=== PATIENT | female | born 1960 | race Caucasian/White ===

== ENCOUNTER → 2017-07-07 | Outpatient (CLI) | payer OTHER ==
[~2017-07-07] MED LIST: GLCSUNK PO; LORA-741 PO; PSEU30TA20 PO; ULT/50 PO; melatonin PO
--- NOTE | 2017-07-07 18:09 | DIAGNOSTIC IMAGING REPORT ---
HEAD CT NONCONTRAST CT DOSE: 537.48 mGy.cm HISTORY: HEADACHE,DIPLOPIA,OTHER VISUAL DISTURBANCES, TECHNIQUE: Multiaxial CT images of the head were performed without the use of intravenous contrast. Automated exposure control was utilized for this study. A dose lowering technique was utilized adhering to the principles of ALARA. Comparison: None. Findings: The paranasal sinuses and mastoid air cells are clear. The calvarium and skull base are intact. The ventricles and sulci are within normal limits. There is no mass, hematoma, midline shift, or acute infarct. There is cerebellar tonsillar ectopia possibly representing a Chiari 1 malformation. Impression: 1. No acute intracranial abnormality. 2. There is cerebellar tonsillar ectopia possibly representing a Chiari 1 malformation. This can be confirmed with follow-up nonemergent brain MRI. Electronically signed by: Naldo Gonzalez M.D. 07/07/2017 6:07 PM Dictated Date/Time: 07/07/2017 6:00 PM
== END | disposition home or self-care (01) ==
LOC: C.CTS 17:40
PROVIDERS: ATTEND Nurse Practitioner Family
DX: H53.8 Other visual disturbances (principal); H53.2 Diplopia; H53.459 Other localized visual field defect, unspecified eye; R51 Headache; G93.89 Other specified disorders of brain

== ENCOUNTER → 2017-07-14 | Outpatient (CLI) | payer OTHER ==
--- NOTE | 2017-07-15 07:56 | DIAGNOSTIC IMAGING REPORT ---
MRI OF THE BRAIN WITHOUT IV CONTRAST CLINICAL HISTORY: Diplopia. COMPARISON STUDY: CT of the brain dated 07/07/2017. TECHNIQUE: MRI of the brain was performed utilizing various T1 and T2-weighted sequences in the axial, sagittal, and coronal planes. IV contrast was not administered for this examination. FINDINGS: Brain parenchyma: There is minimal patchy subcortical and periventricular microangiopathic disease. The brain parenchyma is otherwise normal in appearance. There is no hemorrhage or mass effect. There is no restricted diffusion to suggest acute ischemia. Lopez-white matter differentiation is preserved. No extra-axial fluid collection is seen. The cerebellar tonsils project 10 mm below the foramen magnum. Ventricles, sulci, and cisterns: Normal in configuration. Pituitary and sella: Unremarkable. Intracranial vasculature: Normal flow voids are maintained at the skull base. The basilar artery vertebral arteries appear diminutive. Orbits: The bony orbits are grossly intact. Orbital contents are normal in appearance. Sinuses and mastoids: Clear. Calvarium: Unremarkable. Cervical cord: Partially visualized cervical spinal cord is normal in morphology and signal intensity. IMPRESSION: 1. There is no hemorrhage, mass effect, or evidence of acute ischemia. 2. 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 The cerebellar tonsils are located 10 mm below the foramen magnum. 3. The vertebrobasilar system appears diminutive but patent. This is of indeterminant significance, if any. Electronically signed by: French Modi M.D. 07/14/2017 3:55 PM Dictated Date/Time: 07/14/2017 3:50 PM
== END | disposition home or self-care (01) ==
LOC: C.MRI 09:40
PROVIDERS: ATTEND Nurse Practitioner Family
DX: H53.2 Diplopia (principal); H53.459 Other localized visual field defect, unspecified eye